=== PATIENT | female | born 1965 | race Caucasian/White ===

== ENCOUNTER 2018-10-04 13:58 | Emergency (ER) | payer BC ==
[~2018-10-04] VITALS: Ht 167.6 cm; Wt 57.3 kg
[2018-10-04 14:07] VITALS: BP 142/76; PULSE 89; RESP 20; Ht 167.6 cm; Wt 57.3 kg
[2018-10-04] MEDS ORDERED: CEPH-443 PO (17:14)
[2018-10-04] MEDS ORDERED: PRED20TA PO (17:14)
[2018-10-04] MEDS ORDERED: IBUP-1542 PO (17:14)
--- NOTE | 2018-10-04 17:17 | ERD ---
ER Documentation Chief Complaint Chief Complaint Complains of fever and sore throat x 3 days HPI 53-year-old female presents with pain in the left ear and throat for the last few weeks. She was treated with unknown medication in [place]. She has pain in her left lower molar as well. She did see the dentist 1 month ago without identified bowel abnormalities. She has no difficulty swallowing, difficulty breathing, fevers, vomiting, shortness breath or chest pain. ROS All systems reviewed and are negative except as per history of present illness. Medications Home Meds Active Scripts Cephalexin* (Keflex*) 500 Mg Capsule, 500 MG PO QID for 10 Days, CAP Prov:JESSIE CALHOUN MD 10/04/18 Prednisone* (Prednisone*) 20 Mg Tab, 40 MG PO DAILY for 4 Days, TAB Prov:JESSIE CALHOUN MD 10/04/18 Ibuprofen* (Motrin*) 600 Mg Tab, 600 MG PO Q6, #20 TAB Prov:JESSIE CALHOUN MD 10/04/18 FmHx Family History: No diabetes, No coronary disease, No other Physical Exam Vitals Vital Signs Date Temp Pulse Resp B/P (MAP) Pulse Ox O2 O2 Flow FiO2 Time Delivery Rate 10/04/18 97.7 89 20 142/76 98 14:07 (98) Physical Exam Const: No acute distress Head: Atraumatic Eyes: Normal Conjunctiva ENT: Normal External Ears, Nose and Mouth. TMs normal. Carious tooth with tenderness in the left mid molar. No facial erythema or induration. Minimal tenderness in the left anterior cervical area without significant increase in size of lymph nodes. Airway patent. Neck: Full range of motion. No meningismus. Resp: Clear to auscultation bilaterally Cardio: Regular rate and rhythm, no murmurs Abd: Soft, non tender, non distended. Normal bowel sounds Skin: No petechiae or rashes Back: No midline or flank tenderness Ext: No cyanosis, or edema Neur: Awake and alert Psych: Normal Mood and Affect Procedures/MDM Patient presents with pain in left ear and left anterior cervical lymph nodes with dental pain as well. She has no evidence of abscess, facial cellulitis, airway obstruction, Henrry's angina, and otherwise is well-appearing. Will treat empirically for what appears to be reactive lymphadenitis of normal size with prednisone, Keflex, primary care follow-up and return precautions. She was advised to see primary care dental evaluation for persistent pain otherwise return to the ER for new or worsening symptoms. The patient was stable with no new complaints during the ER course. Clinically, there is no current evidence to suggest meningitis, sepsis, acute abdomen, pneumonia, stroke, acute coronary syndrome, pulmonary embolism, aortic dissection or any other emergent condition appearing to require further evaluation or hospitalization. Patient counseled regarding my diagnostic impression and care plan. Prior to discharge all questions answered. Pt agrees with treatment plan and understands strict return precautions. Pt is instructed to follow up with primary care provider within 24- 48 hours. Precautionary instructions provided including instructions to return to the ER if not improving or for any worsening or changing symptoms or concerns. Departure Diagnosis: Primary Impression: Lymphadenitis Additional Impression: Sore throat Condition: Stable Patient Instructions: Dental Pain, Lymphangitis Referrals: [facility] Ignacio se rodrigues hecho un examen mdico de control que le indica que no est en mahsa condicin que requiera tratamiento urgente en el Departamento de Emergencia. Un estudio ms profundo y el tratamiento de gonsales condicin pueden esperar sin ningn riesgo hasta que usted sea atendida/o en el consultorio de gonsales mdico o mahsa clnica. Es responsabilidad suya arreglar mahsa celena para el seguimiento del crystal. MANEJO DE CONDICIONES NO URGENTES EN EL FUTURO 1) Si usted tiene un mdico de atencin primaria: Usted debera llamar a gonsales mdico de atencin primaria antes de venir al departamento de emergencia. Despus de las horas de consultorio, gonsales doctor o gonsales asociado/a est disponible por telfono. El mdico o enfermero de deidra en el servicio telefnico puede asesorarle por clay medio para atender el problema, o crystal contrario se puede programar mahsa celena. 2) Si usted no tiene un mdico de atencin primaria: Llame al mdico o clnica de referencia que aparece abajo anita las horas de consultorio para hacer mahsa celena para que le vean. CLINICAS: [facility] [id number] [address] [facility] [phone] [facility] [phone] [address] [place] [phone] [place] [phone] [facility]. [phone] [address] Additional Instructions: Cheque otro vez con gonsales doctor primario en el proximo gallardo or regresa para mas o nueva simptomas. JESSIE CALHOUN MD Oct 04, 2018 17:17
== END 2018-10-04 17:29 | disposition home or self-care (01) ==
LOC: FTE 13:58
DX: I88.9 Nonspecific lymphadenitis, unspecified (principal); J02.9 Acute pharyngitis, unspecified
CPT/HCPCS: 99283